=== PATIENT | female | born 1945 | race Caucasian/White ===

== ENCOUNTER → 2016-03-18 | Outpatient (CLI) | payer MEDICARE ==
--- NOTE | 2016-03-18 14:56 | CT ---
EXAM DESCRIPTION: CT HEAD WITHOUT IV CONTRAST CLINICAL HISTORY: HEADACHES COMPARISON: June 30, 2007 TECHNIQUE: Non contrast cranial CT was performed. FINDINGS: The kirby and white matter is unremarkable. No abnormal extra-axial fluid. The ventricles are midline. Basilar cisterns are somewhat crowded. The cerebellar tonsils are noted at the level of the foramen magnum. Vascular calcifications noted. Orbits and globes are unremarkable. Paranasal sinuses hand incompletely imaged mastoid air cells are clear. The calvarium is intact. IMPRESSION: All findings are unchanged when compared to prior wrist study. The cerebellar tonsils are visualized to the level of the foramen magnum. The patient may benefit from an MRI to rule out the possibility of a Chiari malformation Electronically signed by: Jigar De Paz MD 03/18/2016 14:54
--- NOTE | 2016-03-19 12:55 | MRI ---
EXAM DESCRIPTION: Brain MRI. CLINICAL HISTORY: Headaches for 1 month COMPARISON: None. TECHNIQUE: Multiplanar, multisequence MR images were acquired without IV contrast. FINDINGS: The midline structures are unremarkable today's exam. Coronal gradient images demonstrate no evidence of old blood. Multiple T2 hyperintensities noted on today's study. No definitive involutional changes at this time. No intracranial mass effect, hydrocephalus, midline shift, hemorrhage, extra-axial fluid collection, abnormal vascular flow void, or restricted diffusion is seen. Calvarial signal is intact. Paranasal sinuses and the mastoid air cells appear clear. Orbits are within normal limits. IMPRESSION: Today's exam demonstrates findings of what is likely mild chronic microvascular ischemic change. No evidence of acute intracranial event to account for patient's headache. Electronically signed by: Jigar De Paz MD 03/19/2016 12:54
== END ==
LOC: MRI 13:56
PROVIDERS: ATTEND General Practice
DX: R51 Headache (principal)

== ENCOUNTER → 2016-03-19 | Outpatient (CLI) | payer MEDICARE | LOC: MRI 10:33 | PROVIDERS: ATTEND General Practice | DX: R51 Headache (principal) ==

== ENCOUNTER → 2016-09-17 | Outpatient (CLI) | payer MEDICARE ==
--- NOTE | 2016-09-17 12:43 | RAD ---
EXAM DESCRIPTION: Barium Swallow CLINICAL HISTORY: DYSPHAGIA COMPARISON: None TECHNIQUE: The patient swallowed barium pill with water. The patient swallowed gas-producing granules, water, and heavy density barium under fluoroscopic visualization. The images were obtained with the patient standing. Patient drank medium density barium through a straw in the semi-prone position. Fluoroscopic cine loop eight sequences. Static fluorocopic 10 images. Total fluoroscopy time was 3.3 minutes. DAP 95.52 mGy. FINDINGS: Slow transit of the barium pill with sips of water from the oral cavity to the fundus of the stomach. movement into the distal stomach with patient swallowing water and gas crystals. No laryngeal penetration or aspiration. Residual in the vallecula and piriform sinuses after the initial swallow which cleared with second swallow. Primary peristaltic wave to the terminal esophagus. Secondary contractions in the distal esophagus and minimal mucosal irregularity. Small sliding hiatal hernia. Minimal gastroesophageal reflux. Reflux does not increase with Valsalva or coughing. No mass effect in the esophagus or stomach. Gastroduodenal junction is not obstructed. IMPRESSION: 1. Slow transit time through the esophagus. No laryngeal penetration or aspiration. Consider modified barium swallow under supervision of speech-language pathologist. 2. Sliding hiatal hernia and minimal gastroesophageal reflux. Electronically signed by: Sebastian Padilla MD 09/17/2016 12:41 PM CDT Workstation: [id number]
== END | disposition home or self-care (01) ==
LOC: RAD 09:47
PROVIDERS: ATTEND General Practice
DX: R13.10 Dysphagia, unspecified (principal)

== ENCOUNTER 2017-10-18 05:27 | Day surgery (SDC) | payer MEDICARE ==
[2017-10-18] MEDS ORDERED: TROP 1%/CYCLOPEN 1%/PHENYL 2% DROPS ONE (05:51)
[2017-10-18] MEDS ORDERED: PROPARACAINE 0.5% OPHTH SOL 15 ML BTTL ONE (05:51)
[2017-10-18] MEDS ORDERED: MIDAZOLAM INJ 2 MG/2 ML VIAL ONE (06:37)
[2017-10-18] MEDS ORDERED: LIDOCAINE 1% MPF 5 ML VIAL INJ ONE (07:24)
[2017-10-18] MEDS ORDERED: TOBRAMYCIN SULF 0.3 % OPHT SOL 1 DROP LEFT_EYE ONE ×2 (07:30→07:37)
[2017-10-18] MEDS ORDERED: DEXAMETHASONE 0.1% OPHTH SOL 1 DROP LEFT_EYE ONE ×2 (07:30→07:37)
[2017-10-18] MEDS ORDERED: BRIMONIDINE 0.2% OPHTH DROPS LEFT_EYE ONE ×2 (07:31→07:37)
== END 2017-10-18 08:10 | disposition home or self-care (01) ==
LOC: AMB 05:27
PROVIDERS: ATTEND Ophthalmology
DX: H25.12 Age-related nuclear cataract, left eye (principal); I10 Essential (primary) hypertension; K21.9 Gastro-esophageal reflux disease without esophagitis; Z79.899 Other long term (current) drug therapy
CPT/HCPCS: 00142; 66984; J2250

== ENCOUNTER 2017-11-01 05:29 | Day surgery (SDC) | payer MEDICARE ==
[2017-11-01] MEDS ORDERED: TROP 1%/CYCLOPEN 1%/PHENYL 2% DROPS ONE (05:50)
[2017-11-01] MEDS ORDERED: PROPARACAINE 0.5% OPHTH SOL 15 ML BTTL ONE (05:50)
[2017-11-01] MEDS ORDERED: MIDAZOLAM INJ 2 MG/2 ML VIAL ONE (07:06)
[2017-11-01] MEDS ORDERED: LIDOCAINE 1% MPF 5 ML VIAL INJ ONE (07:16)
[2017-11-01] MEDS ORDERED: DEXAMETHASONE 0.1% OPHTH SOL 1 DROP RIGHT_EYE ONE ×2 (07:26→07:32)
[2017-11-01] MEDS ORDERED: TOBRAMYCIN SULF 0.3 % OPHT SOL 1 DROP RIGHT_EYE ONE ×2 (07:26→07:32)
[2017-11-01] MEDS ORDERED: BRIMONIDINE 0.2% OPHTH DROPS RIGHT_EYE ONE ×2 (07:27→07:32)
== END 2017-11-01 08:15 | disposition home or self-care (01) ==
LOC: AMB 05:29
PROVIDERS: ATTEND Ophthalmology
DX: H25.11 Age-related nuclear cataract, right eye (principal); I10 Essential (primary) hypertension; I25.10 Atherosclerotic heart disease of native coronary artery without angina pectoris; K21.9 Gastro-esophageal reflux disease without esophagitis; E66.9 Obesity, unspecified; Z95.1 Presence of aortocoronary bypass graft; Z88.2 Allergy status to sulfonamides; Z79.899 Other long term (current) drug therapy
CPT/HCPCS: 00142; 66984; J2250

== ENCOUNTER → 2018-09-20 | Outpatient (CLI) | payer MEDICARE ==
--- NOTE | 2018-09-20 18:08 | MRI ---
EXAM DESCRIPTION: Brain w/wo Contrast: Magnetic Resonance Imaging. CLINICAL HISTORY: 73 years Female ATAXIA LEFT PERIORBITAL EDEMA COMPARISON: MRI scan of the brain without contrast 03/19/2016. TECHNIQUE: Multiplanar, high-field MRI, multiple conventional sequences, without and with gadolinium IV contrast. No adverse reactions. Multiple axial diffusion sequences. FINDINGS: Confluent hyperintense FLAIR and T2-weighted signal in the bilateral periventricular white matter mainly involving the frontal and occipital horns. Minimal involvement of the bilateral centrum semiovale. Multifocal small hyperintense lesions in the subcortical white matter predominantly frontal and parietal lobes which is a similar pattern to the prior study. These lesions are not associated with mass effect, hemorrhage, cerebral edema, or diffusion restriction.. No abnormal contrast enhancement Small focal lesion in the posterior right basal ganglia anterior right and left basal ganglia showing mild progression since the prior study. No hemorrhage, mass effect or diffusion restriction. No abnormal contrast enhancement. Normal signal in the brainstem and cerebellar hemispheres. No hemorrhage, no cerebral edema, no mass-effect. Normal diffusion and normal contrast enhancement. Concordance of the diffusion and non-diffusion sequences with no evidence of acute or subacute infarction. Cortical sulci, ventricles, and other CSF spaces, and the subdural spaces are normally configured for the patient's age. No effacement or displacement. No midline shift. No extra-axial hemorrhage. Normal contrast enhancement. Normal flow signal void in the major vessels of the [place], and the venous sinuses. IACs are symmetric bilaterally. Normal signal in the bilateral mastoid air cells. No mass effect in the bilateral Cerebellopontine angles. Normal contrast enhancement. No fluid in the bilateral optic nerve sheaths. Normal enhancement. Symmetric appearance of the optic globes. No abnormal fluid or abnormal enhancement in the cone of the orbits bilaterally. Pituitary gland occupies most of the sella. Normal contrast enhancement. Base of the cerebellar tonsils is at the level of the foramen magnum. Mucoperiosteal thickening in the paranasal sinuses. No air-fluid levels. The bony calvarium is intact. IMPRESSION: 1. White matter disease involving the periventricular regions around the frontal and occipital horns with multiple small punctate lesions in the subcortical white matter frontal and parietal lobes more than occipital lobes. Also involvement of the bilateral basal ganglia. Minimal progression since the prior study. No abnormal contrast enhancement. No mass effect. No hemorrhage. Normal diffusion and no evidence of acute or subacute significant ischemia or infarction 2. No mass effect, edema, abnormal contrast enhancement, or hemorrhage involving the optic nerves bilaterally the optic globes or the orbits. 3. Chronic paranasal sinusitis stable since the prior study.. Electronically signed by: Sebastian Padilla MD 09/20/2018 6:06 PM CDT
== END ==
LOC: MRI 11:00
PROVIDERS: ATTEND General Practice
DX: R27.0 Ataxia, unspecified (principal); R90.82 White matter disease, unspecified; J32.9 Chronic sinusitis, unspecified; H05.222 Edema of left orbit

== ENCOUNTER → 2020-04-01 | Outpatient (CLI) | payer MEDICARE ==
--- NOTE | 2020-04-02 20:36 | MAM ---
EXAM DESCRIPTION: 3D Screening BILATERAL : Digital Mammography. CLINICAL HISTORY: 75 years Female ANNUAL SCREENING . No complaints. No family history of breast cancer. Menarche age 9. Childbirth age 19. Menopause age 50. HRT 5 or more years ago. COMPARISON: Bilateral screening digital breast tomosynthesis June 2018 TECHNIQUE: Bilateral CC and MLO projection full-field images, digital tomosynthesis mammographic technique. Bilateral digital 2-D full-field MLO images. CAD available for 2-D images. FINDINGS: The breast parenchymal density pattern is: Almost entirely fatty. Nodular and ductal type fibroglandular tissues anterior breasts bilaterally. Solitary microcalcifications. Vascular calcifications. No skin thickening or nipple retraction No new focal, stellate mass or density, focal asymmetry , and no suspicious microcalcifications bilaterally. Stable mammograms compared to prior study. IMPRESSION: Benign exam. BIRAD CATEGORY: 2 BENIGN FINDINGS. RECOMMENDATIONS: FOLLOW UP: Routine digital bilateral mammographic screening, one year interval from March 2020. Written communication explaining the IMPRESSION and follow-up, will be mailed to the patient and referring health care provider. According to the [employer], yearly mammograms are recommended starting at age 40 and continuing as long as a woman is in good health. Any breast change noted on a breast self-exam should be reported promptly to the patient's healthcare provider. Breast MRI is recommended for women with an approximately 20-25% or greater lifetime risk of breast cancer, including women with a strong family history of breast or ovarian cancer and women who have been treated for Hodgkin's disease. A negative mammographic report should not delay tissue diagnosis in patients with significant clinical history or physical findings. Extremely dense breast tissue limits the sensitivity of digital mammography. Electronically signed by: Sebastian Padilla MD 04/02/2020 8:34 PM [facility]
== END ==
LOC: MAMMO 10:08
PROVIDERS: ATTEND General Practice
DX: Z12.31 Encounter for screening mammogram for malignant neoplasm of breast (principal)